=== PATIENT | female | born 1965 | race Caucasian/White ===

== ENCOUNTER → 2017-10-21 | Outpatient (CLI) | payer OTHER ==
[2017-10-21 13:01] LABS: Anisocytosis Slight; Basophils # (A) 0.1 k/uL (0-0.2); Basophils % (A) 2 %; Eosinophils # (A) 0.2 k/uL (0-0.7); Eosinophils % (A) 3 %; HCT 35.2 % (34.0-46.0); Hypochromasia Marked; Lymphocytes # (A) 2.2 k/uL (1.0-4.8); Lymphocytes % (A) 31 %; MCH 20.2 pg (25.0-35.0); MCHC 28.4 g/dL (31.0-37.0); MCV 71.1 fL (80.0-100.0); Mean Platelet Volume 7.1; Microcytosis Marked; Monocytes # (A) 0.3 k/uL (0-1.0); Monocytes % (A) 5 %; Neutrophils % (A) 57 %; Platelet Count 338 k/uL (150-450); RBC 4.95 m/uL (3.80-5.40); RDW 18.2 % (11.5-15.5); WBC 7.1 k/uL (3.8-10.6)
== END | disposition home or self-care (01) ==
LOC: LABPAT 12:01
PROVIDERS: ATTEND Obstetrics & Gynecology
DX: Z01.812 Encounter for preprocedural laboratory examination (principal); N93.8 Other specified abnormal uterine and vaginal bleeding
CPT/HCPCS: 36415; 85025

== ENCOUNTER 2017-10-24 09:41 | Day surgery (SDC) | payer OTHER ==
[2017-10-19 23:01] VITALS: BMI 38.9
--- NOTE | 2017-10-20 17:12 | HP ---
HISTORY AND PHYSICAL DATE OF PROCEDURE: 10/24/2017. HISTORY: This is a 52-year-old 3, para 3 woman with a longstanding history of menometrorrhagia for greater than 2 years. She has periods every 2-3 weeks, lasting 7- 14 days, but can be unpredictable. The bleeding is heavy and painful. She is anemic with a hemoglobin of 9.6. She has undergone a pelvic ultrasound and endometrial biopsy, both of which are benign in appearance. She desires definitive management by NovaSure endometrial ablation. She is scheduled on 10/24/17. ALLERGY: BENADRYL, CODEINE, LATEX, PREDNISONE, AND SULFA. MEDICATIONS: Aspirin 81 mg daily, Bystolic 5 mg daily, Trintellix 5 mg daily, and Xanax 0.5 mg p.r.n. PAST MEDICAL HISTORY: Dysfunctional uterine bleeding, anemia, chronic hypertension, migraine headaches, obesity, mitral valve prolapse. PAST [employer] HISTORY: She is a 3, para 3, 1 vaginal delivery and 2 sections. She has had a tubal ligation for contraception. PAST SURGICAL HISTORY: Carpal tunnel release 2003, sections 1999 and 2001, tubal ligation 2001. SOCIAL HISTORY: She is . Negative for tobacco, alcohol, and drug use. FAMILY HISTORY: Significant for heart disease in her mother and grandmother. Uterine cancer in her mother. Breast cancer in a grandmother. REVIEW OF SYSTEMS: Positive for fatigue, weight gain, heavy bleeding. Negative for fevers, chills, nausea, vomiting, constipation, diarrhea, abdominal pain. PHYSICAL EXAM: Blood pressure 126/74, weight 214 pounds. Height 5 feet 2. In general this is a pleasant, obese female in no apparent distress. HEENT exam is unremarkable with no palpable lymphadenopathy or thyromegaly. The lungs are clear to auscultation bilaterally and the heart is of regular rate and rhythm with no detectable murmur. The abdomen is obese, soft, and nontender note with no rebound, no guarding and no flank pain. On pelvic examination, she has normal female external genitalia without lesions or irritation. On speculum exam, the cervix appears grossly normal without lesions or discharge. On bimanual examination, the uterus is small, freely mobile and in the midline. There are no adnexal abnormalities palpable. ASSESSMENT: A 52-year-old 3, para 3 with menometrorrhagia and anemia, who is scheduled to undergo diagnostic hysteroscopy and NovaSure ablation on November 03. This procedure is anticipated recovery course and risks have been reviewed with the patient in detail. Risks include, but are not limited to bleeding, infection, uterine perforation with possible injury to pelvic and abdominal structures. The patient understands these risks and agrees to proceed. MMODL / IJN: [id number] /
[~2017-10-24 09:41] MED LIST: LACTATED RINGERS 1,000 ML IV SCH; LIDOCAINE 1% 20 ML VIAL (10MG/ML) FOR IV START INTRADERMA PRN; ONDANSETRON 4 MG/2 ML VIAL IVP ONE; Pre Op ABX Message 1 EACH MISC MISCELLANE ONE; SCOPOLAMINE 1.5MG/72HR PATCH TRANSDERM ONE
[2017-10-24] MEDS ORDERED: LIDOCAINE 1% 20 ML VIAL (10MG/ML) FOR IV START INTRADERMA ONE (10:10)
[2017-10-24] MEDS ORDERED: LIDOCAINE 1% INJ 10MG/ML (20 ML MDV) ONE (10:27)
[2017-10-24] MEDS ORDERED: fentaNYL (PF) 50 MCG/ML 2 ML AMP ONE (10:27)
[2017-10-24] MEDS ORDERED: KETOROLAC 30 MG/ML 1 ML VIAL ONE (10:27)
[2017-10-24] MEDS ORDERED: MIDAZOLAM 2 MG/2 ML VIAL ONE (10:27)
[2017-10-24] MEDS ORDERED: PROPOFOL 10 MG/ML 20 ML VIAL IV ONE (10:27)
[2017-10-24] MEDS ORDERED: SUCCINYLCHOLINE CHLORIDE 100 MG/5 ML SYR IV ONE (10:27)
[2017-10-24] MEDS ORDERED: LIDOCAINE 1%-EPI 1:100,000 20 ML VIAL SQ ONE (10:43)
[2017-10-24] MEDS ORDERED: SILVER NITRATE APPLICATOR 1 EACH STICK..EA. TOPICAL ONE (10:43)
--- NOTE | 2017-10-24 11:05 | P.OP ---
Date of Procedure: 10/24/17 Preoperative Diagnosis: Menometrorrhagia Anemia Postoperative Diagnosis: Same Procedure(s) Performed: Diagnostic hysteroscopy and NovaSure endometrial ablation Anesthesia: LAYNE Surgeon: Tammy Pizarro Estimated Blood Loss (ml): 0 IV fluids (ml): 400 Urine output (ml): 10 Pathology: none sent Condition: stable Disposition: PACU Operative Findings: Enlarged uterus. No intracavitary lesions noted. Description of Procedure: After the patient was met in the preoperative holding area and all questions were answered, she was taken the operating room where anesthetic was administered without incident. She was in positioned, prepped and draped in the dorsal lithotomy position. The bladder was drained for a scant amount of clear urine. Exam under anesthetic was undertaken and a approximately eight- week size uterus was palpated. The sided speculum was then placed in the vagina and the cervix was grasped anteriorly with a single-tooth tenaculum. Paracervical block with lidocaine plus epinephrine was placed. The uterus was sounded to 13 cm. The cervix was sequentially dilated using Hegar dilators to allow for passage of the diagnostic hysteroscope. The hysteroscope was introduced and the uterine cavity was inspected. There were no gross abnormalities appreciated. The bilateral tubal ostia were visualized. The hysteroscope was removed and the cervix was further dilated to allow for passage of the NovaSure ablation device. The device was inserted with a cavity length of 6.5 cm and a width of 4.6 cm. Cavity assessment test was passed. The device was enabled for treatment cycle of 74 seconds at a power of 164 W. Following cessation of the treatment cycle the device was removed and the hysteroscope was reintroduced. Complete desiccation of the endometrium was noted. Device was removed as were the instruments from the cervix. Hemostasis was noted. Speculum was removed from the vagina and the patient was awoken from anesthetic without incident. She was transported recovery area in stable condition.
[2017-10-24 11:12] VITALS: TEMP 97.3
[2017-10-24] MEDS: HYDROmorphone 0.5 MG/0.5 ML SYRINGE IVP PRN ×2 (11:12→11:18)
[2017-10-24 12:31] VITALS: BP 142/63; PULSE 57; RESP 18
== END 2017-10-24 13:08 | disposition home or self-care (01) ==
LOC: OR 09:41
PROVIDERS: ATTEND Obstetrics & Gynecology
DX: N92.1 Excessive and frequent menstruation with irregular cycle (principal); D64.9 Anemia, unspecified; I10 Essential (primary) hypertension; G43.909 Migraine, unspecified, not intractable, without status migrainosus; F39 Unspecified mood [affective] disorder; I34.1 Nonrheumatic mitral (valve) prolapse; E66.9 Obesity, unspecified; Z68.39 Body mass index [BMI] 39.0-39.9, adult; Z88.2 Allergy status to sulfonamides; Z91.040 Latex allergy status; Z88.5 Allergy status to narcotic agent; Z88.8 Allergy status to other drugs, medicaments and biological substances; Z79.1 Long term (current) use of non-steroidal anti-inflammatories (NSAID); Z79.82 Long term (current) use of aspirin; Z79.899 Other long term (current) drug therapy; Z98.51 Tubal ligation status; Z80.49 Family history of malignant neoplasm of other genital organs; Z80.3 Family history of malignant neoplasm of breast; Z82.49 Family history of ischemic heart disease and other diseases of the circulatory system
CPT/HCPCS: 58563; 81025; J2250; J2405; J2001; J3010; J1885; J0330; J2704; J1170

== ENCOUNTER 2020-09-05 12:03 | Emergency (ER) | payer OTHER ==
[2020-09-05 12:13] VITALS: TEMP 98.2
[2020-09-05] MEDS ORDERED: hydrALAZINE HCL 20 MG/ML 1 ML VIAL IVP STA (12:34)
[2020-09-05] MEDS ORDERED: HYDROmorphone 0.5 MG/0.5 ML SYRINGE IVP STA (12:35)
--- NOTE | 2020-09-05 12:41 | ED ---
General Adult HPI - General Chief complaint: Chest Pain Stated complaint: abn EKG, rt arm pain Time Seen by Provider: 09/05/20 12:10 Source: patient, RN notes reviewed, old records reviewed Mode of arrival: ambulatory Limitations: no limitations - History of Present Illness Initial comments: This a 55-year-old female who presents to the emergency department stating that her right arm has been hurting for 2 days. Patient states she went to her doctor's yesterday and they did x-rays and it did not show any acute problems. Patient went to urgent care today where they did x-rays of her neck and an ultrasound of her arm and the patient states that they found no acute abnormalities no blood clots. Patient blood pressure was elevated so they did an EKG does show some flipped T waves in the precordial leads and I sent to the emergency department. Patient states she's had no chest pain no difficulty breathing no shortness of breath no fever chills or cough patient states her arm hurts and it hurts to touch the biceps with her other arm she states she doesn't recall any injury however she was carrying around her grandchild was about 25 pounds a couple days ago. Patient denies any back pain patient denies any nausea vomiting patient denies any diaphoretic episodes. - Related Data Home Medications Medication Instructions Recorded Confirmed Nebivolol HCl [Bystolic] 20 mg PO DAILY 10/18/17 09/05/20 Rizatriptan Benzoate [Maxalt] 10 mg PO BID PRN 10/18/17 09/05/20 Ibuprofen [Advil] 800 mg PO Q6HR PRN 09/05/20 09/05/20 Allergies Allergy/AdvReac Type Severity Reaction Status Date / Time cortisone Allergy Rash/Hives Verified 09/05/20 13:48 latex Allergy Rash/Hives Verified 09/05/20 13:48 methylprednisolone Allergy Rash/Hives Verified 09/05/20 13:48 [From Medrol] Sulfa (Sulfonamide Allergy Rash/Hives Verified 09/05/20 13:48 Antibiotics) Review of Systems ROS Statement: Those systems with pertinent positive or pertinent negative responses have been documented in the HPI. ROS Other: All systems not noted in ROS Statement are negative. Past Medical History Past Medical History: Hypertension Additional Past Medical History / Comment(s): MIGRAINE HEADACHES History of Any Multi-Drug Resistant Organisms: None Reported Past Surgical History: Section Additional Past Surgical History / Comment(s): C SECTION X2, Ablation Past Anesthesia/Blood Transfusion Reactions: Motion Sickness Additional Past Anesthesia/Blood Transfusion Reaction / Comment(s): "SOME ITCHING AFTER C SECTION Past Psychological History: Anxiety, Depression Smoking Status: Never smoker Past Alcohol Use History: Rare Past Drug Use History: None Reported - Past Family History Mother Family Medical History: No Reported History General Exam - General Exam Comments Initial Comments: GENERAL: Patient is well-developed and well-nourished. Patient is nontoxic and well- hydrated and is in mild distress. ENT: Neck is soft and supple. No significant lymphadenopathy is noted. Oropharynx is clear. Moist mucous membranes. Neck has full range of motion without eliciting any pain. EYES: The sclera were anicteric and conjunctiva were pink and moist. Extraocular movements were intact and pupils were equal round and reactive to light. Eyelids were unremarkable. PULMONARY: Unlabored respirations. Good breath sounds bilaterally. No audible rales rhonchi or wheezing was noted. CARDIOVASCULAR: There is a regular rate and rhythm without any murmurs gallops or rubs. ABDOMEN: Soft and nontender with normal bowel sounds. SKIN: Skin is clear with no lesions or rashes and otherwise unremarkable. NEUROLOGIC: Patient is alert and oriented x3. Cranial nerves II through XII are grossly intact. Motor and sensory are also intact. Normal speech, volume and content. Symmetrical smile. MUSCULOSKELETAL: Right bicep is very tender to touch there is no swelling there is no redness ears good pulses distally there is no change in color. Patient has no loss of strength. LYMPHATICS: No significant lymphadenopathy is noted PSYCHIATRIC: Normal psychiatric evaluation. Limitations: no limitations Course Vital Signs 09/05/20 09/05/20 09/05/20 12:11 13:10 14:18 Temperature 98.2 F Pulse Rate 62 65 74 Respiratory 16 16 18 Rate Blood Pressure 175/100 176/111 122/70 O2 Sat by Pulse 97 97 Oximetry Medical Decision Making - Medical Decision Making EKG shows sinus bradycardia 59 bpm MA interval 140 QRS is 90 QT interval is 470 or. Patient's QTC is 469. Patient's EKG shows no significant ST segment elevation or depression. Patient does have some T-wave inversions in V4 and V5. Patient received hydralazine for blood pressure brought her blood pressure down nicely. Patient also received 0.5 of Dilaudid and she says the pain was still there but much improved. Patient was comfortable going home at this time. - Lab Data Result diagrams: 09/05/20 13:06 09/05/20 13:06 Lab Results 09/05/20 09/05/20 09/05/20 Range/Units 13:06 13:06 13:06 WBC 8.1 (3.8-10.6) k/uL RBC 5.36 (3.80-5.40) m/uL Hgb 16.1 H (11.4-16.0) gm/dL Hct 47.1 H (34.0-46.0) % MCV 87.9 (80.0-100.0) fL MCH 30.2 (25.0-35.0) pg MCHC 34.3 (31.0-37.0) g/dL RDW 13.4 (11.5-15.5) % Plt Count 332 (150-450) k/uL MPV 7.3 Neutrophils % 50 % Lymphocytes % 35 % Monocytes % 6 % Eosinophils % 5 % Basophils % 1 % Neutrophils # 4.1 (1.3-7.7) k/uL Lymphocytes # 2.8 (1.0-4.8) k/uL Monocytes # 0.5 (0-1.0) k/uL Eosinophils # 0.4 (0-0.7) k/uL Basophils # 0.1 (0-0.2) k/uL Sodium 138 (137-145) mmol/L Potassium 4.2 (3.5-5.1) mmol/L Chloride 103 (98-107) mmol/L Carbon Dioxide 26 (22-30) mmol/L Anion Gap 9 mmol/L BUN 10 (7-17) mg/dL Creatinine 0.81 (0.52-1.04) mg/dL Est GFR (CKD-EPI)AfAm >90 (>60 ml/min/1.73 sqM) Est GFR (CKD-EPI)NonAf 84 (>60 ml/min/1.73 sqM) Glucose 101 H (74-99) mg/dL Calcium 9.9 (8.4-10.2) mg/dL Total Bilirubin 0.8 (0.2-1.3) mg/dL AST 49 H (14-36) U/L ALT 56 H (4-34) U/L Alkaline Phosphatase 80 (38-126) U/L Troponin I <0.012 (0.000-0.034) ng/mL C-Reactive Protein <5.0 (<10.0) mg/L Total Protein 7.9 (6.3-8.2) g/dL Albumin 4.9 (3.5-5.0) g/dL Disposition Clinical Impression: Biceps strain Disposition: HOME SELF-CARE Condition: Good Instructions (If sedation given, give patient instructions): Muscle Strain (ED) Additional Instructions: Patient should continue taking Toradol and follow up with or so on Tuesday. Patient should double her dose of blood pressure medication at night to 40 mg Is patient prescribed a controlled substance at d/c from ED?: No Referrals: Tiarra Valencia MD [Primary Care Provider] - 1-2 days Time of Disposition: 14:30
[2020-09-05 13:30] LABS: Basophils # (A) 0.1 k/uL (0-0.2); Basophils % (A) 1 %; Eosinophils # (A) 0.4 k/uL (0-0.7); Eosinophils % (A) 5 %; HCT 47.1 % (34.0-46.0); HGB 16.1 gm/dL (11.4-16.0); Lymphocytes # (A) 2.8 k/uL (1.0-4.8); Lymphocytes % (A) 35 %; MCH 30.2 pg (25.0-35.0); MCHC 34.3 g/dL (31.0-37.0); MCV 87.9 fL (80.0-100.0); Mean Platelet Volume 7.3; Monocytes # (A) 0.5 k/uL (0-1.0); Monocytes % (A) 6 %; Neutrophils # (A) 4.1 k/uL (1.3-7.7); Neutrophils % (A) 50 %; Platelet Count 332 k/uL (150-450); RBC 5.36 m/uL (3.80-5.40); RDW 13.4 % (11.5-15.5); WBC 8.1 k/uL (3.8-10.6)
[2020-09-05 14:01] LABS: ALT 56 U/L (4-34); AST 49 U/L (14-36); African American GFR (CKD) >90 (>60 ml/min/1.73 sqM); Albumin 4.9 g/dL (3.5-5.0); Alkaline Phosphatase 80 U/L (38-126); Anion Gap 9 mmol/L; Blood Urea Nitrogen 10 mg/dL (7-17); C Reactive Protein <5.0 mg/L (<10.0); Calcium 9.9 mg/dL (8.4-10.2); Carbon Dioxide 26 mmol/L (22-30); Chloride 103 mmol/L (98-107); Glucose 101 mg/dL (74-99); Non-African American GFR(CKD) 84 (>60 ml/min/1.73 sqM); Potassium 4.2 mmol/L (3.5-5.1); Sodium 138 mmol/L (137-145); Total Bilirubin 0.8 mg/dL (0.2-1.3); Total Protein 7.9 g/dL (6.3-8.2)
[2020-09-05 14:21] VITALS: BP 122/70; PULSE 74; RESP 18
[2020-09-05] MEDS ORDERED: METOCLOPRAMIDE 5 MG/ML 2 ML VIAL IVP STA (14:23)
== END 2020-09-05 14:42 | disposition home or self-care (01) ==
LOC: EC 12:03
DX: S46.211A Strain of muscle, fascia and tendon of other parts of biceps, right arm, initial encounter (principal); I10 Essential (primary) hypertension; Z79.899 Other long term (current) drug therapy; Z88.8 Allergy status to other drugs, medicaments and biological substances; Z91.040 Latex allergy status; Z88.2 Allergy status to sulfonamides; X58.XXXA Exposure to other specified factors, initial encounter
CPT/HCPCS: 36415; 93005; 80053; 84484; 85025; 86140; 99285; 96374; 96375 ×2; J0360; J2765; J1170